=== PATIENT | male | born 1975 | race Caucasian/White ===

== ENCOUNTER 2020-08-15 17:41 | Emergency (ER) | payer OTHER, SELFPAY ==
[2020-08-15 18:07] VITALS: BP 138/75; PULSE 85; RESP 18; TEMP 36.6; O2SAT 95
--- NOTE | 2020-08-15 18:25 | ED.MALEGU ---
HPI - Male Genitourinary General Chief complaint: Urogenital-Male Stated complaint: neg covid test/fequent urination Time Seen by Provider: 08/15/20 18:03 Source: patient and RN notes reviewed Mode of arrival: ambulatory Limitations: no limitations History of Present Illness HPI Narrative: Patient presents today with a 2-day history of urinary frequency, decreased appetite. Today he states his urine is orange discolored. Denies dysuria, hematuria, penile discharge. He did take some cranberry pills today without relief. States he had a fever 2 to 3 days ago that has resolved. Recent negative COVID-19 test. No recent antibiotics. Denies abdominal pain, back pain. Related Data Home Medications Medication Instructions Recorded Confirmed atorvastatin 40 mg PO DAILY 08/15/20 08/15/20 ezetimibe 10 mg PO DAILY 08/15/20 08/15/20 ferrous sulfate 325 mg PO DAILY 08/15/20 08/15/20 furosemide 20 mg PO DAILY 08/15/20 08/15/20 metformin 500 mg PO DAILY 08/15/20 08/15/20 omeprazole 10 mg PO DAILY 08/15/20 08/15/20 ramipril 10 mg PO DAILY 08/15/20 08/15/20 warfarin 5 mg PO DAILY 08/15/20 08/15/20 Allergies Allergy/AdvReac Type Severity Reaction Status Date / Time NKDA Allergy Unknown Uncoded 03/08/10 10:03 Review of Systems Review of Systems: Narrative: CONSTITUTIONAL: Denies body aches, fever, chills, or sweats. EYES: Denies visual changes, redness, or discharge. ENT: Denies rhinorrhea, congestion, sore throat, or otalgia. CARDIOVASCULAR: Denies chest pain, palpitations, or edema. RESPIRATORY: Denies cough or dyspnea. GASTROINTESTINAL: Denies abdominal pain, nausea, vomiting, or diarrhea.+ Decreased appetite GENITOURINARY: Denies dysuria or hematuria. + Urinary frequency, discolored urine SKIN: Denies rash, itching, or wounds. MUSCULOSKELETAL: Denies back pain, joint pain, or myalgia. NEUROLOGIC: Denies headache, numbness, tingling, or weakness. PSYCH: Denies depression or anxiety. [facility] Past Medical History Medical History (Updated 08/15/20 @ 18:31 by Alyse Fraser, MAIL MANAGER, ) Diabetes GERD (gastroesophageal reflux disease) Heart murmur Hodgkins lymphoma Hyperlipidemia Hypertension Sleep apnea Surgical History Surgical History (Updated 08/15/20 @ 18:31 by Alyse Fraser, [facility], ) History of heart artery stent Comments At time of signature, I have reviewed and agree with nursing past medical, surgical, social and family history unless otherwise noted. Please see nursing chart for further information. There is no relevant family history pertinent to the presenting complaint Exam Narrative: Exam Narrative: GENERAL: Well-appearing, well-nourished, and in no acute distress. HEAD: Normocephalic, atraumatic. EYES: EOMI. No redness or drainage. Conjunctivae normal. ENT: Mucous membranes pink and moist. NECK: Normal AROM. CHEST: No respiratory distress. Clear to auscultation. HEART: Regular rate and rhythm. Normal peripheral pulses. Loud murmur noted. Patient aware. ABDOMEN: Soft, nontender, nondistended, normal active bowel sounds.-CVAT MUSCULOSKELETAL: No bony tenderness. EXTREMITIES: Normal range of motion. No edema. SKIN: Warm, dry, no rash. Capillary refill normal. Normal skin turgor. NEURO: No focal deficits. Alert and oriented x3. Gait steady. PSYCH: Normal affect. No signs of depression or anxiety. Course Vital Signs Vital signs: Vital Signs Temperature 97.8 F 08/15/20 18:07 Pulse Rate 85 08/15/20 18:07 Respiratory Rate 18 08/15/20 18:07 Blood Pressure 138/75 08/15/20 18:07 Pulse Oximetry 95 08/15/20 18:07 Temperature 97.8 F 08/15/20 18:07 Pulse Rate 85 08/15/20 18:07 Respiratory Rate 18 08/15/20 18:07 Blood Pressure 138/75 08/15/20 18:07 Pulse Oximetry 95 08/15/20 18:07 Reviewed. Pt has been instructed to follow up with his PCP regarding his elevated blood pressure today. MDM - Male Genitourinary Differential Diagnosis Differential diagnosi
== END 2020-08-15 18:36 | disposition home or self-care (01) ==
PROVIDERS: Emergency Provider Nurse Practitioner; PCP Family Medicine
DX: N30.01 Acute cystitis with hematuria (principal); E11.9 Type 2 diabetes mellitus without complications; K21.9 Gastro-esophageal reflux disease without esophagitis; R01.1 Cardiac murmur, unspecified; E78.5 Hyperlipidemia, unspecified; I10 Essential (primary) hypertension; G47.30 Sleep apnea, unspecified; I25.10 Atherosclerotic heart disease of native coronary artery without angina pectoris; Z95.5 Presence of coronary angioplasty implant and graft; Z85.72 Personal history of non-Hodgkin lymphomas
CPT/HCPCS: 81003; 87077; 87086; 87088; 87186; 99213; G0463

== ENCOUNTER 2022-01-19 08:58 | Emergency (ER) | payer BC, SELFPAY ==
--- NOTE | ~2022-01-19 | XR_ITS ---
XR chest 2V DATE: 01/19/2022 09:48 INDICATION: Cough, congestion for 3 to 4 weeks TECHNIQUE: 2 views COMPARISON: None FINDINGS: Borderline heart size. Convex density lateral aspect of left hilum; aortopulmonary window m ass or adenopathy is not excluded. There is some increased density overlying the left upper lobe sugg esting left upper lobe infiltrate and/or atelectasis. CT thorax examination is recommended. The lungs otherwise appear clear. No pleural effusion or pulmonary vascular congestion or pneumothora x. IMPRESSION: Prominent convex density overlying aortopulmonary window; of left lower lobe infiltrate a nd/atelectasis. CT thorax is recommended. Reviewed, dictated and finalized at location A. IMPRESSION: Prominent convex density overlying aortopulmonary window; of left l ower lobe infiltrate and/atelectasis. CT thorax is recommended.
[2022-01-19 09:12] VITALS: BP 129/79; PULSE 74; RESP 20; TEMP 37.1; O2SAT 96
--- NOTE | 2022-01-19 09:29 | ED.URI ---
HPI - URI/Sore Throat General Chief Complaint: Upper Respiratory Infection Stated Complaint: head congestion headache Time Seen by Provider: 01/19/22 09:30 Source: patient, RN notes reviewed and old records reviewed Mode of arrival: ambulatory Limitations: no limitations History of Present Illness HPI Narrative: 46-year-old male who presents to [facility] with complaints of 3-4 weeks of nasal congestion and post nasal congestion with some cough with mucous production of yellow tinged mucous. Patient reports that he has been taking Mucinex and Flonase with no improvement in symptoms. Patient states that he has also had headache pain to left forehead and behind left eye. Patient voices some dyspnea when he coughs only.Patient stats that he has had Covid vaccinations and flu shot. MD elicited complaint: cough, rhinorrhea and nasal congestion Onset (ago): week(s) (3-4 weeks) Treatments prior to arrival: other (Mucinex and Flonase) Related Data Home Medications Medication Instructions Recorded Confirmed atorvastatin 40 mg tablet 40 mg PO DAILY 08/15/20 01/19/22 ferrous sulfate 325 mg (65 mg 325 mg PO DAILY 08/15/20 01/19/22 iron) tablet furosemide 20 mg tablet 20 mg PO DAILY 08/15/20 01/19/22 metformin 500 mg tablet 500 mg PO DAILY 08/15/20 01/19/22 omeprazole 10 mg capsule,delayed 10 mg PO DAILY 08/15/20 01/19/22 release ramipril 10 mg capsule 10 mg PO DAILY 08/15/20 01/19/22 warfarin 5 mg tablet 5 mg PO DAILY 08/15/20 01/19/22 Allergies Allergy/AdvReac Type Severity Reaction Status Date / Time No Known Allergies Allergy Verified 01/19/22 09:17 Review of Systems Review of Systems: CONSTITUTIONAL: Denies fever, chills, or sweats. EYES: no visual changes, redness, or discharge. ENT: positive for rhinorrhea, congestion, nosore throat, or otalgia. CARDIOVASCULAR: Denies chest pain, palpitations, or edema. RESPIRATORY: Positive cough or dyspnea only with cough GASTROINTESTINAL: Denies abdominal pain, nausea, vomiting, or diarrhea. GENITOURINARY: Denies dysuria or hematuria. SKIN: Denies rash or itching. MUSCULOSKELETAL: Denies back pain, joint pain, or myalgia. NEUROLOGIC: Positive for headache, no numbness, or weakness. PSYCHIATRIC: Denies anxiety or depression. [facility] Past Medical History Medical History (Updated 01/20/22 @ 00:00 by Chad Dastefanie) Diabetes GERD (gastroesophageal reflux disease) Heart murmur Hodgkins lymphoma Hyperlipidemia Hypertension Sleep apnea Surgical History Surgical History (Updated 01/20/22 @ 20:14 by Binta Piper NP) History of heart artery stent History of partial splenectomy Social History Social History (Updated 01/20/22 @ 20:16 by Binta Piper NP) Smoking status: Former smoker Additional smoking assessment comments: Quit 07/2009 Alcohol intake: current Alcohol use details: rare Substance use type: does not use Living arrangements: with family Gender identity (if verbalized by the patient): Male Comments At time of signature, agree with nursing past medical, surgical, social and family history. There is no relevant family history pertinent to the presenting complaint Exam Narrative: GENERAL: Well-appearing, well-nourished, and in no acute distress. HEAD: Normocephalic, atraumatic. EYES: PERRLA and EOMI. ENT: Nares with red membranes yellowish rhinorrhea no epistaxis. Mucous membranes moist.TM's normal with good light reflex, throat with redness no lesions or exudates or tonsil swelling post nasal drainage NECK: Supple. CHEST:Coarse left upper lobe on auscultation. No respiratory distress.Cough SAO2 96% on room air HEART: Regular rate and rhythm.murmur heard 3/6 left upper chest Normal peripheral pulses. ABDOMEN: Soft, nontender, nondistended, normal active bowel sounds. EXTREMITIES: Normal range of motion. No edema. SKIN: Warm, dry, no rash. NEURO: No focal deficits. Alert and oriented x3. Course Course Level of Care: Express Care Vis
== END 2022-01-19 10:27 | disposition home or self-care (01) ==
PROVIDERS: Emergency Provider Registered Nurse; PCP Family Medicine
DX: J32.9 Chronic sinusitis, unspecified (principal); R91.8 Other nonspecific abnormal finding of lung field; Z87.891 Personal history of nicotine dependence; E11.9 Type 2 diabetes mellitus without complications; K21.9 Gastro-esophageal reflux disease without esophagitis; R01.1 Cardiac murmur, unspecified; E78.5 Hyperlipidemia, unspecified; I10 Essential (primary) hypertension; G47.30 Sleep apnea, unspecified; Z85.71 Personal history of Hodgkin lymphoma
CPT/HCPCS: 71046; 99213; G0463

== ENCOUNTER 2022-03-31 16:45 | Outpatient (CLI) | payer OTHER, SELFPAY ==
--- NOTE | ~2022-03-31 | CT_ITS ---
EXAMINATION: CT diagnostic chest wo con DATE: 03/31/2022 17:15 INDICATION: ABNORMAL CXR TECHNIQUE: Computed tomography (CT) of the chest was performed without intravenous contrast. Addition al 3D reconstructions utilizing coronal maximum intensity projection (MIP) were performed. Automated exposure control and iterative reconstruction technique were employed. The dose-length product was 65 1.76 mGy-cm. COMPARISON: None FINDINGS: Left upper lobe collapse and partial collapse of the lingula. There are calcifications at the site of stenosis versus occlusion of the left upper lobe bronchus which suggests possibility of fibrosing me diastinitis. There are couple small calcified nodules in the collapsed left upper lobe consistent wit h old granulomatous disease. Indeterminate 4 mm right lower lobe nodule. Very small linear band of di scoid atelectasis in the right lower lobe. No pneumonia, pulmonary edema or pleural effusion. Heart s ize is normal. Atherosclerotic coronary artery calcifications. Aortic valve calcification. No pericar dial effusion. Thoracic aorta is normal in caliber. No pathologically enlarged thoracic lymphadenopat hy. Cirrhotic liver with prominent nodular surface. Cholelithiasis within the normal-appearing partia lly decompressed gallbladder. Splenomegaly consistent with secondary portal venous hypertension. Ther e is peripheral mural calcification along the main portal vein which can be seen with chronic portal venous hypertension. A few right renal cysts the largest measuring 2.6 cm. Moderate thoracic spondylo sis. IMPRESSION: 1. Left upper lobe collapse and partial collapse of the lingula with calcifications at the narrowed v ersus occluded left upper lobe bronchus which suggests fibrosing mediastinitis related to old granulo matous disease. 2. Cirrhosis with splenomegaly consistent with associated portal venous hypertension. 3. Cholelithiasis. 4. Indeterminate 4 mm right lower lobe nodule. If the patient is low risk for lung cancer, no follow- up is needed. If the patient is high risk (i.e., history of smoking or asbestos or significant radiat ion exposure), optional follow-up chest CT could be considered at 12 months. Reviewed, dictated and finalized at location A. IMPRESSION: 1. Left upper lobe collapse and partial collapse of the lingula with calcificat ions at the narrowed versus occluded left upper lobe bronchus which suggests fi brosing mediastinitis related to old granulomatous disease. 2. Cirrhosis with splenomegaly consistent with associated portal venous hyperte nsion. 3. Cholelithiasis. 4. Indeterminate 4 mm right lower lobe nodule. If the patient is low risk for l neva cancer, no follow-up is needed. If the patient is high risk (i.e., history of smoking or asbestos or significant radiation exposure), optional follow-up c hest CT could be considered at 12 months.
== END 2022-03-31 16:46 | disposition home or self-care (01) ==
PROVIDERS: PCP Family Medicine; Visit Provider Family Medicine
DX: R93.89 Abnormal findings on diagnostic imaging of other specified body structures (principal); K74.69 Other cirrhosis of liver; K80.20 Calculus of gallbladder without cholecystitis without obstruction
CPT/HCPCS: 71250

== ENCOUNTER 2022-06-01 08:54 | Emergency (ER) | payer OTHER, SELFPAY ==
[2022-06-01 09:09] VITALS: BP 148/91; PULSE 73; RESP 16; TEMP 35.8; O2SAT 97
--- NOTE | 2022-06-01 09:13 | ED.EAR ---
HPI - Ear Problem General Chief complaint: Ear Stated complaint: Right Ear Pain Time Seen by Provider: 06/01/22 09:14 Source: patient, RN notes reviewed and old records reviewed Mode of arrival: ambulatory Limitations: no limitations History of Present Illness HPI Narrative: 46-year-old male presents to [facility] with complaints of 1 week duration cold symptoms which patient states are resolving but reports 3 day history of ear pain with right ear greatest intensity with decreased hearing, left ear also is painful. Patient states his left ear popped the other day his right ear still feels clogged. Patient reports that he has been taking some Ibuprofen for his discomfort.He states that he has also been taking some DayQuil for his sinus symptoms.Cautioned patient that he is on Warfarin and should not take Ibuprofen should be Tylenol and with hypertension ask pharmacist for recommendations on cold medications or take Coricidin brand which is safe with hypertension. MD Complaint: ear pain Location: bilateral Duration: constant Severity: severe Discharge from ear: Reports no Treatment prior to arrival: oral analgesic and other (cold medication) Related Data Home Medications Medication Instructions Recorded Confirmed atorvastatin 40 mg tablet 40 mg PO DAILY 08/15/20 06/01/22 furosemide 20 mg tablet 20 mg PO DAILY 08/15/20 06/01/22 metformin 500 mg tablet 500 mg PO DAILY 08/15/20 06/01/22 omeprazole 10 mg capsule,delayed 10 mg PO DAILY 08/15/20 06/01/22 release ramipril 10 mg capsule 10 mg PO DAILY 08/15/20 06/01/22 warfarin 5 mg tablet 5 mg PO DAILY 08/15/20 06/01/22 ezetimibe 10 mg tablet 10 mg PO DAILY 06/01/22 06/01/22 nadolol 20 mg tablet 20 mg PO DAILY 06/01/22 06/01/22 Allergies Allergy/AdvReac Type Severity Reaction Status Date / Time No Known Allergies Allergy Verified 06/01/22 09:10 Review of Systems Review of Systems: CONSTITUTIONAL: Denies malaise, chills, sweats, or fever. EYES: Denies visual changes, redness, or discharge. ENT: Reports rhinorrhea, congestion, sinus pain, bilateral otalgia denies sore throat. CARDIOVASCULAR: Denies chest pain, palpitations, or edema. RESPIRATORY: Reports cough.? Denies dyspnea. GASTROINTESTINAL: Denies abdominal pain, nausea, vomiting, diarrhea SKIN: Denies rash or itching. MUSCULOSKELETAL: Denies myalgia. NEUROLOGIC: Denies headache. All systems reviewed & are unremarkable except as noted in HPI and below PMFSH Past Medical History Medical History Diabetes GERD (gastroesophageal reflux disease) Heart murmur Hodgkins lymphoma Hyperlipidemia Hypertension Sleep apnea Surgical History Surgical History History of heart artery stent History of partial splenectomy Social History Social History Smoking status: Former smoker Additional smoking assessment comments: Quit 07/2009 Alcohol intake: current Alcohol use details: rare Substance use type: does not use Gender identity (if verbalized by the patient): Male Comments At time of signature, agree with nursing past medical, surgical, social and family history. There is no relevant family history pertinent to the presenting complaint Exam Narrative: GENERAL: Well-appearing, well-nourished, and in no acute distress. HEAD: Normocephalic EYES: PERRLA, conjunctivae clear ENT: Nares clear, turbinates edematous and erythematous, clear discharge. Mucous membranes moist. Right ear TM pearly santos with dull light reflex Left TM red and bulging;, bilaterl ear canals red and irritated no drainage noted,no tragal tenderness. Oropharynx erythematous without lesions. Tonsils not enlarged and without exudate, no drooling, no hoarseness, no trismus, uvula midline. NECK: Supple. No lymphadenopathy CHEST: Clear to auscultation, breath soun
== END 2022-06-01 09:35 | disposition home or self-care (01) ==
PROVIDERS: Emergency Provider Registered Nurse; PCP Family Medicine
DX: H65.02 Acute serous otitis media, left ear (principal); H60.93 Unspecified otitis externa, bilateral; E11.9 Type 2 diabetes mellitus without complications; K21.9 Gastro-esophageal reflux disease without esophagitis; R01.1 Cardiac murmur, unspecified; E78.5 Hyperlipidemia, unspecified; I10 Essential (primary) hypertension; G47.30 Sleep apnea, unspecified; Z95.5 Presence of coronary angioplasty implant and graft; Z85.71 Personal history of Hodgkin lymphoma; Z87.891 Personal history of nicotine dependence
CPT/HCPCS: 99213; G0463

== ENCOUNTER 2022-10-28 20:27 | Observation (INO) | payer OTHER, SELFPAY ==
[2022-10-28] VITALS (11 sets, daily range): BP systolic 110–140; BP diastolic 63–84; PULSE 69–85; RESP 14–23; TEMP 36.7–37.2; O2SAT 92–98; BMI 36.6
--- NOTE | ~2022-10-28 | CT_ITS ---
EXAMINATION: CT abdomen pelvis w con DATE: 10/28/2022 22:00 INDICATION: Gastrointestinal bleeding TECHNIQUE: Computed tomography (CT) of the abdomen and pelvis was performed with 100 CC Omnipaque 350 intravenous contrast. Automated exposure control and iterative reconstruction technique were employe d. Exam dose: 1501.68 mGy-cm total exam DLP. COMPARISON: None. FINDINGS: Status post sternotomy. Aortic valve replacement. Cardiomegaly. Right atrial and right vent ricular pacemaker leads. There is mild right pleural effusion. There is dependent right lower lobe atelectasis. There is slight left pleural effusion. There is prominent surface nodularity and diminished size of liver consistent with cirrhosis. There i s splenomegaly. There is minimal ascites. There are multiple stones in the dependent aspect of the gallbladder. No bile duct or pancreatic duct dilatation. No adrenal mass lesion. Multiple bilateral renal cysts, measuring up to 2.7 cm on the right and 3.6 cm on the left. There is a pinpoint nonobstructing left renal calculus. No other urinary tract calculus or hydrourete ronephrosis. Normal caliber of the abdominal aorta. No intraperitoneal or retroperitoneal or pelvic mass lesion or adenopathy. There is prostate enlargement and calcifications. There is diffuse bladder wall thickening likely sec ondary to prostatomegaly. Normal appendix. No bowel obstruction or intraperitoneal free air. These degenerative changes of the thoracic and lumbar spine IMPRESSION: Cirrhosis, splenomegaly, mild ascites Cholelithiasis Bilateral renal cysts Pinpoint nonobstructing left renal calculus cardiomegaly, mild right pleural effusion Status post aortic valve replacement Right atrial and ventricular pacemaker leads Dependent right lower lobe atelectasis Reviewed, dictated and finalized at [facility] Reviewed, dictated and finalized at [facility]. IMPRESSION: Cirrhosis, splenomegaly, mild ascites Cholelithiasis Bilateral renal cysts Pinpoint nonobstructing left renal calculus cardiomegaly, mild right pleural ef fusion Status post aortic valve replacement Right atrial and ventricular pacemaker leads Dependent right lower lobe atelectasis
--- NOTE | 2022-10-28 20:56 | ED.GIBLEED ---
HPI - GI Bleed General Chief complaint: GI Bleed Stated complaint: blood in stool; on thinners Time Seen by Provider: 10/28/22 20:45 History of Present Illness HPI Narrative: This is a 47-year-old male with past medical history for coronary artery disease, status post CABG and pacemaker placement in September of this year, on Coumadin, who presents emergency department with blood in his stool. He states yesterday he noticed blood mixed in his stool. Today, he had a bowel movement 9 hours ago, that also had blood mixed in. He states his INR was checked yesterday and he was 5.7. He did not take his Coumadin last night. He denies chest pain, shortness of breath, lightheadedness or weakness. Related Data Home Medications Medication Instructions Recorded Confirmed atorvastatin 40 mg tablet 40 mg PO DAILY 08/15/20 06/01/22 furosemide 20 mg tablet 20 mg PO DAILY 08/15/20 06/01/22 metformin 500 mg tablet 500 mg PO DAILY 08/15/20 06/01/22 omeprazole 10 mg capsule,delayed 10 mg PO DAILY 08/15/20 06/01/22 release ramipril 10 mg capsule 10 mg PO DAILY 08/15/20 06/01/22 warfarin 5 mg tablet 5 mg PO DAILY 08/15/20 06/01/22 ezetimibe 10 mg tablet 10 mg PO DAILY 06/01/22 06/01/22 nadolol 20 mg tablet 20 mg PO DAILY 06/01/22 06/01/22 Allergies Allergy/AdvReac Type Severity Reaction Status Date / Time No Known Allergies Allergy Verified 10/28/22 20:28 Review of Systems Review of Systems: CONSTITUTIONAL: Denies fever, chills, or sweats. CARDIOVASCULAR: Denies chest pain, palpitations, or edema. RESPIRATORY: Denies cough or dyspnea. GASTROINTESTINAL: Blood in stool denies abdominal pain, nausea, vomiting, or diarrhea. GENITOURINARY: Denies dysuria or hematuria. SKIN: Denies rash or itching. MUSCULOSKELETAL: Denies back pain, joint pain, or myalgia. NEUROLOGIC: Denies headache, numbness, dizziness, or weakness. PSYCHIATRIC: Denies anxiety or depression. [facility] Past Medical History Medical History Diabetes GERD (gastroesophageal reflux disease) Heart murmur Hodgkins lymphoma Hyperlipidemia Hypertension Sleep apnea Surgical History Surgical History History of heart artery stent History of partial splenectomy Social History Social History Smoking status: Former smoker Additional smoking assessment comments: Quit 07/2009 Alcohol intake: current Alcohol use details: rare Substance use type: does not use Living arrangements: with family Gender identity (if verbalized by the patient): Male Exam Narrative: GENERAL: Well-developed, well-nourished, and in no acute distress. HEAD: Normocephalic, atraumatic. EYES: PERRLA and EOMI. conjunctiva appear normal ENT: Nares clear, no rhinorrhea or epistaxis. Mucous membranes moist. Oropharynx without tonsillar hypertrophy exudate or other lesions. NECK: Supple. No adenopathy or masses. No carotid bruits or JVD CHEST: Clear to auscultation. No respiratory distress. No wheezes rales or rhonchi HEART: Regular rate and rhythm. No murmur heard. Normal peripheral pulses. ABDOMEN: Soft, nontender, nondistended, normal active bowel sounds. RECTAL: There are no noted external hemorrhoids. There is a small amount of dried blood noted at the anus. No mass or stool noted in the rectal vault. There is blood mixed in stool. EXTREMITIES: Normal range of motion. No edema. SKIN: Warm, dry, no rash. NEURO: No focal deficits. Alert and oriented x3. PSYCH: Normal mood and affect. Course Course Emergency Course: 21:45 - Hemoglobin 11.7 (unknown baseline, platelets 124. INR 4.2. Chemistries demonstrate a creatinine of 1.6 and a BUN of 34 (baseline unknown). CT abdomen/pelvis pending. 21:50 - Discussed patient with GI, Dr. Rebolledo who agrees to consult. 21:54 - Discussed patient with hospitalist, Dr. Stevenson who acce
[2022-10-28] MEDS: PANTOPRAZOLE SODIUM IV 40 MG VIAL 80 MG IV PUSH (21:11)
[2022-10-28 21:32] LABS: Basophils Percent Auto 0.8 % (0.2-1.2); Eosinophils Absolute Auto 0.1 K/mm3 (0-0.3); Hematocrit 38.1 % (42.0-52.0); Hemoglobin 11.7 g/dL (14.0-18.0); Immature Granulocyte Absolute 0.04 K/mm3 (0.00-0.031); Immature Granulocyte Percent A 0.8 % (0-0.5); Lymphocytes Absolute Auto 0.68 K/mm3 (0.9-3.2); Lymphocytes Percent Auto 13.6 % (18.3-44.2); Mean Corpuscular HGB Conc 30.7 g/dl (32-36); Mean Corpuscular Hemoglobin 28.7 pg (26-34); Mean Corpuscular Volume 93.4 fl (80-100); Mean Platelet Volume 12.2 fl (7.4-10.4); Monocytes Absolute Auto 0.5 K/mm3 (0.1-0.6); Neutrophils Absolute Auto 3.7 K/mm3 (1.3-6.7); Neutrophils Percent Auto 73.8 % (45.5-73.1); Platelet Count Result 124 k/mm3 (150-375); Red Blood Count 4.08 M/mm3 (4.6-6.20); Red Cell Distribution Width 16.3 % (11.5-14.5)
[2022-10-28 21:43] LABS: Alanine Aminotransferase 30 U/L (6-50); Albumin Level 3.7 g/dL (3.5-5.1); Alkaline Phosphatase 118 U/L (38-126); Anion Gap 6 mmol/L (8-16); Aspartate Amino Transferase 35 U/L (17-59); Bilirubin,Total 0.8 mg/dL (0.2-1.3); Blood Urea Nitrogen 34 mg/dL (9-20); Calcium 8.2 mg/dL (8.4-10.2); Carbon Dioxide 30 mmol/L (22-30); Chloride 103 mmol/L (98-107); Estimated CRCL calculation 65 ml/min; Estimated Glomerular Filt Rate 46; Glucose 156 mg/dL (65-110); INR 4.2; Partial Thromboplastin Time 55.3 SECONDS (22.3-36.8); Potassium 4.4 mmol/L (3.4-5.0); Prothrombin Time 39.4 Seconds (11.1-14.7); Sodium 139 mmol/L (137-145)
--- NOTE | 2022-10-28 21:52 | PM.IMHP ---
H&P: HPI History of Present Illness Date/Time: 10/28/22 21:52 Chief Complaint: Bright red blood per rectum Narrative: This is a 47-year-old male with past medical history significant for aortic valve replacement recently, mechanical valve, on chronic anticoagulation with Coumadin presents to emergency room with bright red blood per rectum several episodes found to have initially INR of 7 now down to 4. Patient denies any hematemesis, coffee-ground emesis, no abdominal pain, no epigastric pain, no weight loss, no changes seeing stool character, nose changes in bowel habits, no fevers, no rigors, no chills, no syncope or near syncope no chest pain no shortness of breath has bilateral lower extremity swelling after leaving the hospital which has gone down significantly as per . Hemoglobin and hematocrit was 11/38 respectively Preliminary workup was significant for CT of abdomen and pelvis reported as: FINDINGS: Status post sternotomy. Aortic valve replacement. Cardiomegaly. Right atrial and right ventricular pacemaker leads. There is mild right pleural effusion. There is dependent right lower lobe atelectasis. There is slight left pleural effusion. There is prominent surface nodularity and diminished size of liver consistent with cirrhosis. There is splenomegaly. There is minimal ascites. There are multiple stones in the dependent aspect of the gallbladder. No bile duct or pancreatic duct dilatation. No adrenal mass lesion. Multiple bilateral renal cysts, measuring up to 2.7 cm on the right and 3.6 cm on the left. There is a pinpoint nonobstructing left renal calculus. No other urinary tract calculus or hydroureteronephrosis. Normal caliber of the abdominal aorta. No intraperitoneal or retroperitoneal or pelvic mass lesion or adenopathy. There is prostate enlargement and calcifications. There is diffuse bladder wall thickening likely secondary to prostatomegaly. Normal appendix. No bowel obstruction or intraperitoneal free air. These degenerative changes of the thoracic and lumbar spine IMPRESSION:? Cirrhosis, splenomegaly, mild ascites Cholelithiasis Bilateral renal cysts Pinpoint nonobstructing left renal calculus cardiomegaly, mild right pleural effusion Status post aortic valve replacement Right atrial and ventricular pacemaker leads Dependent right lower lobe atelectasis Review of Systems Review of Systems: Bright red blood per rectum supratherapeutic INR Constitutional: Constitutional: Denies chills, Denies fever(s), Denies malaise and Denies weakness Eyes: Eyes: Denies change in vision ENT: Denies dysphagia and Denies odynophagia Cardiovascular: Cardiovascular: Denies chest pain and Denies palpitations Respiratory: Respiratory: Denies chest congestion, Denies excessive phlegm production, Denies pain on inspiration, Denies dyspnea and Denies dyspnea on exertion Gastrointestinal: Gastrointestinal: Denies melena, Reports hematochezia, Denies coffee ground emesis, Denies nausea, Denies vomiting and Denies hematemesis Genitourinary: Genitourinary: Denies dysuria Musculoskeletal: Musculoskeletal: Denies back pain, Denies joint swelling and Denies muscle weakness Integumentary/Breasts: Skin/Breast: Denies rash Neurologic: Denies focal weakness and Denies Sensory deficit (Neuro) Psychiatric: Psychiatric: Reports no additional psychiatric complaints and Reports as per HPI Endocrine: Endocrine: Denies cold intolerance, Denies flushing, Denies heat intolerance, Denies polyphagia, Denies polydipsia and Denies palpitations Hematologic/Lymphatic: Hematologic/Lymphatic: Reports no additional hematologic/lymphatic complaints and Reports as per HPI Allergic/Immunologic: Allergic/Immunologic: Reports no additional allergic/immunologic complaints and Reports as per HPI PMFSH Past Medical History Medical History (Updated 10/29/22 @ 20:30 by Khoi Cruz MD) Acute blood loss anemia CKD stage G3b/A2, GFR 30-44 and albumin
[2022-10-28] MEDS: SODIUM CHLORIDE 0.9% IV 1,000 ML 999 ML IV CONT (22:00)
--- NOTE | 2022-10-28 23:17 | ADMGEN ---
This patient, Nomi Reynolds, was admitted to 3 [facility] Surg Room 300-01. Patient/family oriented to hospital policies and general routines including ID bracelet, bed and alarms, visiting hours, pain management, procedures, bathroom and other care routines, personal items, smoking policy, room service/diet, and visiting hours. Information on how to activate the Rapid Response Team has been discussed. Patient/Family are encouraged to report perceived risks to care and to ask questions if they do not understand what they are told or what they should do.
[2022-10-29] VITALS (9 sets, daily range): BP systolic 100–145; BP diastolic 42–79; PULSE 67–83; RESP 14–20; TEMP 36.1–36.8; O2SAT 92–96
[2022-10-29 07:01] LABS: Basophils Percent Auto 1.1 % (0.2-1.2); Eosinophils Absolute Auto 0.1 K/mm3 (0-0.3); Eosinophils Percent Auto 3.3 % (0-4.4); Hematocrit 33.7 % (42.0-52.0); Hemoglobin 10.3 g/dL (14.0-18.0); Immature Granulocyte Absolute 0.03 K/mm3 (0.00-0.031); Immature Granulocyte Percent A 0.8 % (0-0.5); Immature Platelet Fraction Pct 5.5 % (0.9-11.2); Lymphocytes Absolute Auto 0.58 K/mm3 (0.9-3.2); Lymphocytes Percent Auto 16.2 % (18.3-44.2); Mean Corpuscular HGB Conc 30.6 g/dl (32-36); Mean Corpuscular Hemoglobin 28.3 pg (26-34); Mean Corpuscular Volume 92.6 fl (80-100); Mean Platelet Volume 12.2 fl (7.4-10.4); Monocytes Absolute Auto 0.3 K/mm3 (0.1-0.6); Monocytes Percent Auto 8.1 % (2.6-8.5); Neutrophils Absolute Auto 2.5 K/mm3 (1.3-6.7); Neutrophils Percent Auto 70.5 % (45.5-73.1); Platelet Count Result 85 k/mm3 (150-375); Red Blood Count 3.64 M/mm3 (4.6-6.20); Red Cell Distribution Width 16.1 % (11.5-14.5); White Blood Count 3.6 K/mm3 (4.5-10.0)
[2022-10-29 08:43] LABS: Glucose Point of Care 102 mg/dl (65-105)
[2022-10-29] MEDS: FLUTICASONE PROPIONATE 0.05% NA SPR 16 GM BTL (*BKC) 2 SPRAY NASAL (09:04)
[2022-10-29] MEDS: PANTOPRAZOLE SOD SESQUIHYDRATE 20 MG TAB PO (09:04)
[2022-10-29] MEDS: AMIODARONE HCL 200 MG TABLET PO ×2 (09:05→17:36)
[2022-10-29] MEDS: METOPROLOL SUCCINATE EXT REL 50 MG TABCR PO ×2 (09:05→20:42)
[2022-10-29] MEDS: MULTIVITAMINS THERAPEUTIC TAB (*BKC) 1 TABLET PO (09:06)
[2022-10-29] MEDS: CHOLECALCIFEROL 1,000 UNITS TABLET 2000 UNITS PO (09:06)
[2022-10-29] MEDS: ATORVASTATIN 40 MG TABLET 80 MG PO (09:06)
[2022-10-29 09:14] LABS: Platelet Estimate Decreased (Adequate)
[2022-10-29 09:15] LABS: Burr Cells 1+ (NORMAL); Crenated RBC 1+ (NORMAL); Poikilocytosis 1+ (NORMAL); Schistocytes 1+ (NORMAL)
[2022-10-29 09:16] LABS: Ovalocytes 1+ (NORMAL)
[2022-10-29] MEDS: INSULIN ASPART (*BKC) 100 UNITS/ML 8 UNITS SUB-Q ×3 (09:50→17:37)
[2022-10-29 12:22] LABS: Glucose Point of Care 154 mg/dl (65-105)
--- NOTE | 2022-10-29 12:33 | PM.IMPN ---
Progress Note: A&P Assessment and Plan (1) GI bleed: Code(s): K92.2 - Gastrointestinal hemorrhage, unspecified Status: Acute Assessment and Plan: GI to see the patient Repeat coags (2) Elevated INR: Code(s): R79.1 - Abnormal coagulation profile Status: Acute Assessment and Plan: Repeat coags (3) Creatinine elevation: Code(s): R79.89 - Other specified abnormal findings of blood chemistry Status: Acute (4) Status post mechanical aortic valve replacement: Code(s): Z95.2 - Presence of prosthetic heart valve Status: Acute Subjective Date/time seen: 10/29/22 12:33 No more bleeding Exam Narrative: GENERAL: Well-developed, well-nourished, and in no acute distress. HEAD: Normocephalic, atraumatic. EYES: PERRLA and EOMI. conjunctiva appear normal ENT: Nares clear, no rhinorrhea or epistaxis. Mucous membranes moist. Oropharynx without tonsillar hypertrophy exudate or other lesions. NECK: Supple. No adenopathy or masses. No carotid bruits or JVD CHEST: Clear to auscultation. No respiratory distress. No wheezes rales or rhonchi HEART: Regular rate and rhythm. No murmur heard. Normal peripheral pulses. ABDOMEN: Soft, nontender, nondistended, normal active bowel sounds. RECTAL: There are no noted external hemorrhoids. There is a small amount of dried blood noted at the anus. No mass or stool noted in the rectal vault. There is blood mixed in stool. EXTREMITIES: Normal range of motion. No edema. SKIN: Warm, dry, no rash. NEURO: No focal deficits. Alert and oriented x3. PSYCH: Normal mood and affect. Objective Data Vital Signs Vital Signs: Vital Signs - 24 hr 10/28/22 20:35 10/28/22 20:47 10/28/22 21:01 Temperature 98.9 F Pulse Rate 85 73 71 Respiratory Rate 16 22 H 20 Blood Pressure 131/81 140/76 114/70 Pulse Oximetry 95 98 97 Oxygen Delivery Room Air 10/28/22 21:46 10/28/22 22:01 10/28/22 22:16 Temperature Pulse Rate 78 69 69 Respiratory Rate 23 H 20 22 H Blood Pressure 110/72 120/84 118/81 Pulse Oximetry 95 92 95 Oxygen Delivery 10/28/22 22:31 10/28/22 22:43 10/28/22 23:04 Temperature 98.1 F Pulse Rate 69 70 73 Respiratory Rate 18 23 H 14 Blood Pressure 117/80 117/80 117/63 Pulse Oximetry 94 96 97 Oxygen Delivery 10/28/22 23:20 10/28/22 23:46 10/29/22 04:00 Temperature 98.1 F 96.9 F L Pulse Rate 73 73 67 Respiratory Rate 14 14 14 Blood Pressure 117/63 100/42 L Pulse Oximetry 97 97 96 Oxygen Delivery Room Air 10/29/22 09:05 10/29/22 09:05 10/29/22 08:00 Temperature 97.0 F L Pulse Rate 67 67 67 Respiratory Rate 20 Blood Pressure 107/79 Pulse Oximetry 95 Oxygen Delivery 10/29/22 12:00 Temperature 97.3 F L Pulse Rate 75 Respiratory Rate 20 Blood Pressure 110/70 Pulse Oximetry 93 Oxygen Delivery Intake/Output Intake/Output: Intake & Output 10/26/22 10/27/22 10/28/22 10/29/22 23:59 23:59 23:59 23:59 Intake Total 1000 980 Balance 1000 980 Meds/Results Medications: Active Medications Generic Name Dose Route Start Last Admin Trade Name Freq PRN Reason Stop Dose Admin Hydrocodone Bitart/Acetaminophen 1 tab 10/29/22 04:47 Hydrocodone/Acetaminophen (*Crx) 5-325 Mg Tablet PO Q4H PRN Pain Amiodarone HCl 200 mg 10/29/22 08:00 10/29/22 09:05 Amiodarone Hcl 200 Mg Tablet PO 200 mg BIDWM LORE Administration Atorvastatin Calcium 80 mg 10/29/22 09:00 10/29/22 09:06 Atorvastatin 40 Mg Tablet PO 80 mg DAILY LORE Administration Fluticasone Propionate 2 spray 10/29/22 09:00 10/29/22 09:04 Fluticasone Propionate 0.05% Na Spr 16 Gm Btl (*Bkc) NASAL 2 spray DAILY LORE Administration Insulin Aspart 8 units 10/29/22 08:00 10/29/22 09:50 Insulin Aspart (*Bkc) 100 Units/Ml SUB-Q 8 units TIDWM LORE Administration Insulin Glargine 20 units 10/29/22 21:00 Insulin Glargine (*Bkc) 100 Units/Ml SUB-Q HS LORE Metopr
[2022-10-29 12:59] LABS: INR 3.9; Prothrombin Time 36.8 Seconds (11.1-14.7)
[2022-10-29 17:13] LABS: Glucose Point of Care 156 mg/dl (65-105)
--- NOTE | 2022-10-29 20:24 | WPDGICN ---
Assessment and Plan Assessment and plan (1) Rectal bleeding: Code(s): K62.5 - Hemorrhage of anus and rectum Status: Acute Assessment and Plan: this is setting of supratherapeutic inr- coumadin on hold now if h/h remains stable, no more bleeding and still hemodynamically stable hopefully he can be discharged tomorrow and follow-up as outpatient otherwise we will need to do colonoscopy but need to wait on inr had colonoscopy about 2-3 years ago (2) Elevated INR: Code(s): R79.1 - Abnormal coagulation profile Status: Acute Assessment and Plan: coumadin on hold (3) GI bleed: Code(s): K92.2 - Gastrointestinal hemorrhage, unspecified Status: Acute Assessment and Plan: ? perianal serial h/h (4) Status post mechanical aortic valve replacement: Code(s): Z95.2 - Presence of prosthetic heart valve Status: Acute (5) Acute blood loss anemia: Code(s): D62 - Acute posthemorrhagic anemia Status: Acute Assessment and Plan: monitor for more signs of bleeding (6) CKD stage G3b/A2, GFR 30-44 and albumin creatinine ratio 30-299 mg/g: Code(s): N18.32 - Chronic kidney disease, stage 3b Status: Acute (7) Diabetes: Code(s): E11.9 - Type 2 diabetes mellitus without complications Status: Acute GI Consult Note Consult date/time: 10/29/22 20:24 Reason for consult: rectal bleeding, prolonged inr due to coumadin HPI: Nomi Reynolds is a 47 year old male with past medical history significant for aortic valve replacement last month, pacemaker. He has been on coumadin for over 5 years, last colonoscopy about 3 years ago with polyps. He came to the emergency room with new onset of bright red blood per rectum started Monday, INR checked and was 5.9. He normally has loose stools and PCP instructed to use imodium as needed. Because persistent rectal bleeding he decided to come to the hospital. He denies any hematemesis, abdominal pain, no changes melba habits (normally loose), no fevers, no syncope. INR here 4.2, hb 11.7 repeat 10.3, creatinine 1.6 Review of Systems Review of Systems: CONSTITUTIONAL: Denies fever, chills, or sweats. CARDIOVASCULAR: Denies chest pain, palpitations, or edema. RESPIRATORY: Denies cough or dyspnea. GASTROINTESTINAL: Blood in stool denies abdominal pain, nausea, vomiting, or diarrhea. GENITOURINARY: Denies dysuria or hematuria. SKIN: Denies rash or itching. MUSCULOSKELETAL: Denies back pain, joint pain, or myalgia. NEUROLOGIC: Denies headache, numbness, dizziness, or weakness. PSYCHIATRIC: Denies anxiety or depression. Neurologic: Denies Abnormal speech present Psychiatric: Psychiatric: Denies behavioral changes [facility] Past Medical History Medical History (Updated 10/29/22 @ 20:30 by Khoi Cruz MD) Acute blood loss anemia CKD stage G3b/A2, GFR 30-44 and albumin creatinine ratio 30-299 mg/g Diabetes GERD (gastroesophageal reflux disease) Heart murmur Hodgkins lymphoma Hyperlipidemia Hypertension Rectal bleeding Sleep apnea Surgical History Surgical History (Updated 10/29/22 @ 04:53 by Mira Stevenson MD) History of heart artery stent History of partial splenectomy Social History Social History Smoking status: Former smoker Additional smoking assessment comments: Quit 07/2009 Alcohol intake: current Alcohol use details: rare Substance use type: does not use Lack of Transportation: No Lack of Food: Never True Current Housing: I Have Housing Concerned About Future Housing: No Difficulty Paying Gas/Electric Bills: No Difficulty Paying for Meds: No Currently Unemployed: YES Education: High School Diploma/GED Difficulty w/ Childcare or Family Care: No Living arrangements: with family Gender identity (if verbalized by the patient): Male Spiritual care concerns: No Meds Home Medica
[2022-10-29] MEDS: INSULIN GLARGINE (*BKC) 100 UNITS/ML 20 UNITS SUB-Q (20:43)
[2022-10-29 22:44] LABS: Glucose Point of Care 125 mg/dl (65-105)
[2022-10-30] VITALS: BP 130/65; PULSE 80; RESP 14; TEMP 36.8; O2SAT 92
[2022-10-30 04:00] VITALS: BP 100/52; PULSE 72; TEMP 36.3; O2SAT 91
[2022-10-30 07:44] LABS: Basophils Percent Auto 0.6 % (0.2-1.2); Eosinophils Absolute Auto 0.2 K/mm3 (0-0.3); Eosinophils Percent Auto 4.4 % (0-4.4); Hematocrit 32.8 % (42.0-52.0); Hemoglobin 10.2 g/dL (14.0-18.0); Immature Granulocyte Absolute 0.03 K/mm3 (0.00-0.031); Immature Granulocyte Percent A 0.6 % (0-0.5); Immature Platelet Fraction Pct 5.3 % (0.9-11.2); Lymphocytes Absolute Auto 0.53 K/mm3 (0.9-3.2); Lymphocytes Percent Auto 11.2 % (18.3-44.2); Mean Corpuscular HGB Conc 31.1 g/dl (32-36); Mean Corpuscular Hemoglobin 28.4 pg (26-34); Mean Corpuscular Volume 91.4 fl (80-100); Monocytes Absolute Auto 0.3 K/mm3 (0.1-0.6); Monocytes Percent Auto 6.3 % (2.6-8.5); Neutrophils Absolute Auto 3.6 K/mm3 (1.3-6.7); Neutrophils Percent Auto 76.9 % (45.5-73.1); Platelet Count Result 91 k/mm3 (150-375); Red Blood Count 3.59 M/mm3 (4.6-6.20); Red Cell Distribution Width 15.9 % (11.5-14.5); White Blood Count 4.7 K/mm3 (4.5-10.0)
[2022-10-30 08:00] VITALS: BP 101/50; PULSE 72; RESP 16; TEMP 36.2; O2SAT 94
[2022-10-30 08:00] LABS: Alanine Aminotransferase 25 U/L (6-50); Albumin Level 3.3 g/dL (3.5-5.1); Alkaline Phosphatase 101 U/L (38-126); Anion Gap 4 mmol/L (8-16); Aspartate Amino Transferase 31 U/L (17-59); Bilirubin,Total 0.8 mg/dL (0.2-1.3); Blood Urea Nitrogen 30 mg/dL (9-20); Calcium 8.4 mg/dL (8.4-10.2); Carbon Dioxide 27 mmol/L (22-30); Chloride 109 mmol/L (98-107); Estimated CRCL calculation 69 ml/min; Estimated Glomerular Filt Rate 50; Glucose 93 mg/dL (65-110); Potassium 4.6 mmol/L (3.4-5.0); Sodium 140 mmol/L (137-145)
[2022-10-30 08:03] LABS: INR 3.1; Prothrombin Time 30.7 Seconds (11.1-14.7)
[2022-10-30 08:04] LABS: Partial Thromboplastin Time 48.7 SECONDS (22.3-36.8)
[2022-10-30 08:39] LABS: Glucose Point of Care 91 mg/dl (65-105)
[2022-10-30] MEDS: INSULIN ASPART (*BKC) 100 UNITS/ML 8 UNITS SUB-Q ×2 (08:43→12:31)
[2022-10-30 08:46] VITALS: PULSE 72
[2022-10-30] MEDS: FLUTICASONE PROPIONATE 0.05% NA SPR 16 GM BTL (*BKC) 2 SPRAY NASAL (08:46)
[2022-10-30] MEDS: METOPROLOL SUCCINATE EXT REL 50 MG TABCR PO (08:46)
[2022-10-30] MEDS: MULTIVITAMINS THERAPEUTIC TAB (*BKC) 1 TABLET PO (08:46)
[2022-10-30] MEDS: PANTOPRAZOLE SOD SESQUIHYDRATE 20 MG TAB PO (08:46)
[2022-10-30] MEDS: CHOLECALCIFEROL 1,000 UNITS TABLET 2000 UNITS PO (08:46)
[2022-10-30] MEDS: ATORVASTATIN 40 MG TABLET 80 MG PO (08:46)
[2022-10-30 08:47] VITALS: PULSE 72
[2022-10-30] MEDS: AMIODARONE HCL 200 MG TABLET PO (08:47)
[2022-10-30 11:05] LABS: Burr Cells 1+ (NORMAL); Poikilocytosis 1+ (NORMAL)
[2022-10-30 11:06] LABS: Anisocytosis 1+ (NORMAL); Schistocytes None Seen (NORMAL); Tear Drop Cells 1+ (NORMAL)
[2022-10-30 12:00] VITALS: BP 111/65; PULSE 100; RESP 20; TEMP 36.4; O2SAT 95
--- NOTE | 2022-10-30 12:03 | WPDGIPROGNO ---
Progress Note: A&P Assessment and Plan (1) GI bleed: Code(s): K92.2 - Gastrointestinal hemorrhage, unspecified Status: Acute Assessment and Plan: no more bleeding and hb stable at 10 he also has home health nurse and they can monitor inr and h/h as outpatient he can go home (2) Rectal bleeding: Code(s): K62.5 - Hemorrhage of anus and rectum Status: Acute Assessment and Plan: stopped- probably related to prolonged inr he had colonoscopy 2-3 years ago, if recurrent rectal bleeding probably will need colonoscopy as outpatient when coumadin can safely put on hold. (3) Acute blood loss anemia: Code(s): D62 - Acute posthemorrhagic anemia Status: Acute Assessment and Plan: h/h stable now and no more signs of bleeding (4) CKD stage G3b/A2, GFR 30-44 and albumin creatinine ratio 30-299 mg/g: Code(s): N18.32 - Chronic kidney disease, stage 3b Status: Acute (5) Diabetes: Code(s): E11.9 - Type 2 diabetes mellitus without complications Status: Acute (6) Elevated INR: Code(s): R79.1 - Abnormal coagulation profile Status: Acute (7) Status post mechanical aortic valve replacement: Code(s): Z95.2 - Presence of prosthetic heart valve Status: Acute Subjective Date/time seen: 10/30/22 12:03 Interval history: doing well, no more BM, he is comfortable Review of Systems Review of Systems: All systems reviewed & are unremarkable except as noted in HPI and below Exam Const: General: comfortable and no acute distress HENMT: Face/Nose/Sinus: Normal nares present Eyes: General: appearance normal, both eyes and all related structures Neck: Neck: supple Resp: Effort & Inspection: normal respiratory effort Auscultation: clear to auscultation bilaterally Cardio: Rate: regular rate Other: + click GI: GI Palp: Yes Soft to palpation, No Tenderness to palpation present (GI) and No Guarding due to palpation present (GI) Skin: General skin exam: normal color Neuro: Speech: normal speech Motor exam (neuro): 5/5 motor strength present throughout Extrem: General: normal to inspection Psych: Mental Status: mental status grossly normal Objective Data Vital Signs Vital Signs: Vital Signs - 24 hr 10/29/22 16:00 10/29/22 17:36 10/29/22 20:42 Temperature 98.0 F Pulse Rate 74 74 72 Respiratory Rate 20 Blood Pressure 126/70 Pulse Oximetry 95 Oxygen Delivery 10/29/22 20:00 10/30/22 00:00 10/29/22 19:50 Temperature 98.2 F 98.3 F Pulse Rate 83 80 80 Respiratory Rate 14 14 14 Blood Pressure 145/70 H 130/65 Pulse Oximetry 93 92 92 Oxygen Delivery Room Air 10/30/22 04:00 10/30/22 08:00 10/30/22 08:46 Temperature 97.4 F L 97.1 F L Pulse Rate 72 72 72 Respiratory Rate 16 Blood Pressure 100/52 L 101/50 L Pulse Oximetry 91 94 Oxygen Delivery 10/30/22 08:47 Temperature Pulse Rate 72 Respiratory Rate Blood Pressure Pulse Oximetry Oxygen Delivery Intake/Output Intake/Output: Intake & Output 10/27/22 10/28/22 10/29/22 10/30/22 23:59 23:59 23:59 23:59 Intake Total 1000 2130 740 Balance 1000 2130 740 Meds/Results Medications: Active Medications Generic Name Dose Route Start Last Admin Trade Name Freq PRN Reason Stop Dose Admin Hydrocodone Bitart/Acetaminophen 1 tab 10/29/22 04:47 Hydrocodone/Acetaminophen (*Crx) 5-325 Mg Tablet PO Q4H PRN Pain Amiodarone HCl 200 mg 10/29/22 08:00 10/30/22 08:47 Amiodarone Hcl 200 Mg Tablet PO 200 mg BIDWM LORE Administration Atorvastatin Calcium 80 mg 10/29/22 09:00 10/30/22 08:46 Atorvastatin 40 Mg Tablet PO 80 mg DAILY LORE Administration Fluticasone Propionate 2 spray 10/29/22 09:00 10/30/22 08:46 Fluticasone Propionate 0.05% Na Spr 16 Gm Btl (*Bkc) NASAL 2 spray DAILY LORE Administration Insulin Aspart 8 units 10/29/22 08:00 10/30/22 08:43 Insulin Aspart (*Bkc)
--- NOTE | 2022-10-30 12:17 | PM.DS ---
DS: Admitting Diagnosis Discharge Date October 30, 2022 Admitting Diagnosis Elevated INR, GI bleed DS: Discharge Diagnosis Discharge Diagnosis (1) GI bleed: Code(s): K92.2 - Gastrointestinal hemorrhage, unspecified Status: Acute Assessment and Plan: Will hold the blood thinner GI consult Monitor H&H Transfuse for hemoglobin below 7 (2) Elevated INR: Code(s): R79.1 - Abnormal coagulation profile Status: Acute Assessment and Plan: Hold Coumadin (3) Creatinine elevation: Code(s): R79.89 - Other specified abnormal findings of blood chemistry Status: Acute Assessment and Plan: Continue to monitor BUN and creatinine (4) Status post mechanical aortic valve replacement: Code(s): Z95.2 - Presence of prosthetic heart valve Status: Acute Assessment and Plan: Continue home meds Continue to monitor Supratherapeutic INR DS: Summary Hospital Course Hospital Course: Patient had recent cardiac procedure including valve replacement. He is on Coumadin. INR was elevated had lower GI bleed likely. GI will follow up as an outpatient. Patient will coordinate with his cardiothoracic surgeon and what to do with his Coumadin prior to procedure. Time Spent with Patient Time attestation: Total time spent providing and/or coordinating discharge services: Exam Narrative: Patient things in a stretcher in semi upright position looks older than stated age however well-appearing Const: General: comfortable, no acute distress, well developed, alert, awake, average body habitus and overweight Nutritional Appearance: average body habitus and overweight Orientation/consciousness: patient oriented x3 HENMT: Head: normal to inspection, normocephalic and atraumatic Ears: hearing grossly normal bilaterally Face/Nose/Sinus: normal facial exam Face and sinus: normal facial exam Eyes: General: appearance normal, both eyes and all related structures Pupils: Equal, round and reactive pupils present EOM: EOMs intact bilaterally Neck: Neck: full ROM, no lymphadenopathy and no JVD Thyroid: thyroid normal Lymphatic: no lymphadenopathy noted Chest: Other: Mid sternum surgical wound well healed Resp: Effort & Inspection: normal respiratory effort and able to speak in complete sentences Auscultation: clear to auscultation bilaterally Cardio: Jugular venous distension: no JVD Rate: regular rate Rhythm: regular rhythm Heart sounds: S1 normal heart sound present and S2 normal heart sound present GI: Inspection: obesity : General: Yes deferred Skin: Rashes: no rashes Wounds: no wounds Neuro: General: patient oriented x3 and CN's II-XI intact bilaterally Cranial nerves: Yes CN's II-XII intact bilaterally and Yes Equal, round and reactive pupils present Cognition (Neuro): normal cognition Speech: normal speech Gait exam (Neuro): Normal gait present Motor exam (neuro): 5/5 motor strength present throughout Sensory Exam: No Sensory deficit (Neuro) Extrem: General: normal to inspection, full ROM, edema and pedal edema DS: Data Data Completed and Pending Labs on day of discharge: Labs from last 24 hours 10/30/22 10/30/22 10/30/22 08:21 07:20 07:20 WBC RBC Hgb Hct MCV MCH MCHC RDW Plt Count MPV Immature Gran % (Auto) Neut % (Auto) Lymph % (Auto) [place] % (Auto) Eos % (Auto) Baso % (Auto) Lymph # (Auto) [place] # (Auto) Eos # (Auto) Baso # (Auto) Abs Immat Gran (auto) Absolute Neuts (auto) Absolute Nucleated RBC Nucleated RBC % Platelet Estimate % Immature Plt Fraction Poikilocytosis Anisocytosis Tear Drop Cells Justino Cells Schistocytes PT 30.7 H INR 3.1 APTT 48.7 H Sodium 140 Potassium 4.6 Chloride 109 H Carbon Dioxide 27 Anion Gap 4 L BUN 30 H Creatinine 1.50 H Estim Creat Clear Calc 69 Estimated GFR 50 L Glucos
[2022-10-30 12:18] LABS: Glucose Point of Care 152 mg/dl (65-105)
== END 2022-10-30 13:00 | disposition home health service (06) ==
LOC: ANHED 22:04 → ANH3MEDSUR 10-29 13:42
PROVIDERS: Nurse Practitioner; Admitting Provider Internal Medicine; Emergency Provider Preventive Medicine Aerospace Medicine; PCP Family Medicine; Visit Provider Chiropractor
DX: K92.2 Gastrointestinal hemorrhage, unspecified (principal); R79.1 Abnormal coagulation profile; R79.89 Other specified abnormal findings of blood chemistry; Z95.2 Presence of prosthetic heart valve; I25.10 Atherosclerotic heart disease of native coronary artery without angina pectoris; Z95.1 Presence of aortocoronary bypass graft; K80.20 Calculus of gallbladder without cholecystitis without obstruction; K74.60 Unspecified cirrhosis of liver; R18.8 Other ascites; R16.1 Splenomegaly, not elsewhere classified; K21.9 Gastro-esophageal reflux disease without esophagitis; E78.5 Hyperlipidemia, unspecified; I12.9 Hypertensive chronic kidney disease with stage 1 through stage 4 chronic kidney disease, or unspecified chronic kidney disease; E11.22 Type 2 diabetes mellitus with diabetic chronic kidney disease; E66.9 Obesity, unspecified; N18.32 Chronic kidney disease, stage 3b; Z68.36 Body mass index [BMI] 36.0-36.9, adult; J98.11 Atelectasis; G47.30 Sleep apnea, unspecified; Z87.891 Personal history of nicotine dependence; F10.90 Alcohol use, unspecified, uncomplicated; Z95.0 Presence of cardiac pacemaker; Z79.4 Long term (current) use of insulin; Z79.82 Long term (current) use of aspirin; Z79.51 Long term (current) use of inhaled steroids; Z79.84 Long term (current) use of oral hypoglycemic drugs; Z79.01 Long term (current) use of anticoagulants; Z79.899 Other long term (current) drug therapy
CPT/HCPCS: 36415; 74177; 80053; 82948; 85025; 85055; 85610; 85730; 86850; 86900; 86901; 96374; 99285; A9270; C9113; G0378; J1815; J7030; Q9967